=== PATIENT | male | born 1995 | race Caucasian/White ===

== ENCOUNTER → 2019-01-12 13:24 | Emergency (ER) | payer BC ==
--- NOTE | 2019-01-12 14:02 | ED ---
GI/ HPI - HPI Summary HPI Summary: The patient is a 23 y/o M presenting to [facility] with a chief complaint of sudden onset nausea and three episodes of vomiting associated with constant diffuse abd cramping but normal BM onset this morning. He additionally reports an episode of epistaxis. He denies fever, chills, erythema of eyes, sore throat, CP , SOB, cough, dysuria, hematuria, myalgia, edema, rash, or dizziness. Since vomiting, he has been able to tolerate PO. Occasional EtOH and light everyday smoker. No past hx. - History of Current Complaint Chief Complaint: EDNauseaVomitDiarrh Time Seen by Provider: 01/12/19 13:55 Stated Complaint: FLU LIKE SYMPTOMS PER PT Hx Obtained From: Patient Onset/Duration: Started Hours Ago - this morning, Still Present Timing: Lasting Hours Severity: Moderate Current Severity: Moderate Pain Intensity: 0 Location of Pain: Diffuse Pain Characteristics: Cramping Associated Signs and Symptoms: Positive: Nausea, Vomiting. Negative: Diarrhea, Fever, Change in Appetite, Chills Aggravating Factor(s): Nothing Alleviating Factor(s): Nothing - Allergy/Home Medications Allergies/Adverse Reactions: Allergies Allergy/AdvReac Type Severity Reaction Status Date / Time No Known Allergies Allergy Verified 01/12/19 13:30 PMH/Surg Hx/FS Hx/Imm Hx Endocrine/Hematology History: Denies: Hx Diabetes Respiratory History: Denies: Hx Asthma Sensory History: Reports: Hx Contacts or Glasses Denies: Hx Deafness Opthamlomology History: Reports: Hx Contacts or Glasses Denies: Hx Legally Blind EENT History: Denies: Hx Deafness - Surgical History Surgery Procedure, Year, and Place: none Infectious Disease History: No Infectious Disease History: Denies: Traveled Outside the [place] in Last 30 Days - Family History Known Family History: Negative: Diabetes - Social History Alcohol Use: Occasionally Hx Substance Use: Yes Substance Use Type: Reports: Marijuana Hx Tobacco Use: Yes Smoking Status (MU): Light Every Day Tobacco Smoker Review of Systems Negative: Fever, Chills Negative: Erythema Positive: Epistaxis. Negative: Sore Throat Negative: Chest Pain Negative: Shortness Of Breath, Cough Positive: Abdominal Pain - diffuse cramping that seems to be constant, Vomiting , Nausea, Other - normal BM. Negative: Diarrhea Negative: dysuria, hematuria Negative: Myalgia, Edema Negative: Rash Neurological: Other - NEGATIVE: dizziness, decreased appetite All Other Systems Reviewed And Are Negative: Yes Physical Exam - Summary Physical Exam Summary: Constitutional: Non-toxic appearing, Well-developed, Well-nourished, Alert. (-) Distressed Skin: Warm, Dry HENT: Normocephalic; Atraumatic Eyes: Conjunctiva normal Neck: Musculoskeletal ROM normal neck. (-) JVD, (-) Stridor, (-) Tracheal deviation Cardio: Rhythm regular, rate normal, Heart sounds normal; Intact distal pulses; The pedal pulses are 2+ and symmetric. Radial pulses are 2+ and symmetric. (-) Murmur Pulmonary/Chest wall: Effort normal. (-) Respiratory distress, (-) Wheezes, (-) Rales Abd: Soft, (-) tenderness, (-) Distension, (-) Guarding, (-) Rebound, Able to tolerate PO Musculoskeletal: (-) Edema Lymph: (-) Cervical adenopathy Neuro: Alert, Oriented x3 Psych: Mood and affect Normal Triage Information Reviewed: Yes Vital Signs On Initial Exam: Initial Vitals Temp Pulse Resp BP Pulse Ox 98.8 F 90 14 145/97 98 01/12/19 13:31 01/12/19 13:31 01/12/19 13:31 01/12/19 13:31 01/12/19 13:31 Vital Signs Reviewed: Yes Diagnostics - Vital Signs Vital Signs Temp Pulse Resp BP Pulse Ox 01/12/19 13:31 98.8 F 90 14 145/97 98 - Laboratory Lab Statement: Any lab studies that have been ordered have been reviewed, and results considered in the medical decision making process. GIGU Course/Dx - Course Course Of Treatment: The patient is a 23 y/o M with a chief complaint of sudden onset nausea and three episodes of vomiting associated with constant diffuse abd cramping but normal BM this morning. He additionally reports an episode of epistaxis. He denies fever and chills. Since vomiting, he has been able to tolerate PO. Upon physical exam, the patient is nontoxic appearing and can tolerate PO. He is diagnosed with acute vomiting. He will be discharged home with prescription for Zofran. He is instructed to drink marcy anthony and increase fluid intake. He will be off work until he is cleared by his PCP. He agrees with this plan and understands the need for return to the ED for any new or worsening symptoms. - Diagnoses Provider Diagnoses: Vomiting Discharge - Sign-Out/Discharge Documenting (check all that apply): Patient Departure - Patiet will be discharged home. Patient Received Moderate/Deep Sedation with Procedure: No - Discharge Plan Condition: Stable Disposition: HOME Prescriptions: Ondansetron ODT TAB* [Zofran 4 MG Odt TAB*] 4 mg PO Q8H PRN #9 tab.odt PRN Reason: Nausea/Vomiting Patient Education Materials: Acute Nausea and Vomiting (ED) Forms: *Work Release Referrals: Waylon Puckett DO [Primary Care Provider] - 3 Days Additional Instructions: Please take medication as prescribed. Drink marcy anthony and try to retain fluids. Follow up with your primary care provider in 2-3 days. RETURN TO THE EMERGENCY DEPARTMENT FOR CHANGING OR WORSENING SYMPTOMS - Billing Disposition and Condition Condition: STABLE Disposition: Home - Attestation Statements Document Initiated by Shawnaibe: Yes Documenting Scribe: Nya Argueta Provider For Whom Timi is Documenting (Include Credential): Dr. Apolinar Booth MD Scribe Attestation: Nya Perez scribed for Dr. Apolinar Booth MD on 01/13/19 at 1052. Scribe Documentation Reviewed: Yes Provider Attestation: The documentation as recorded by the Nya sandoval accurately reflects the service I personally performed and the decisions made by me, Dr. Apolinar Booth MD Status of Scribe Document: Viewed
[2019-01-12 14:32] VITALS: BP 138/76
== END | disposition home or self-care (01) ==
LOC: ED 13:24
DX: R11.10 Vomiting, unspecified (principal); F17.210 Nicotine dependence, cigarettes, uncomplicated
CPT/HCPCS: 99282